=== PATIENT | male | born 2000 | race Caucasian/White ===

== ENCOUNTER 2018-04-30 21:44 | Emergency (ER) | payer SELFPAY ==
[~2018-04-30] VITALS: Ht 177.8 cm; Wt 104.3 kg
[2018-04-30 21:57] VITALS: BP_SYST 125
--- NOTE | 2018-04-30 22:01 | NUR ---
Patient triaged and placed in waiting room. VSS and patient appears in no acute distress at this time. Accompanied by FATHER, awaiting available bed, and MD notified of need for MSE.
--- NOTE | 2018-04-30 22:44 | NUR ---
Patient to ER bed 8 to gown for evaluation. Side rails up. Report given to TRINY Hairston
--- NOTE | 2018-04-30 22:46 | NUR ---
Pt brought by self, A&Ox4, pt presents to ER with bodyaches and fever since today, skin pink and warm, respirations even and unlabored, denies chest pain, denies N/V/D.
--- NOTE | 2018-04-30 22:46 | NUR ---
Dr Montalvo at bedside examining patient
--- NOTE | 2018-04-30 22:57 | NUR ---
Pt on stable condition, report given to Ciera AGOSTO.
[2018-04-30 23:20] VITALS: BP_SYST 120
--- NOTE | 2018-04-30 23:20 | NUR ---
Note rashid in EDM - 04/30/18 at 2349 by [email or web address] Patient given written and verbal discharge instructions and verbalizes understanding. ER discussed with patient the results and treatment provided. Patient in stable condition. ID arm band removed. IV catheter removed intact and dressing applied, no active bleeding. Rx of given. Patient educated on pain management and to follow up with PMD. Pain Scale . Opportunity for questions provided and answered. Medication side effect fact sheet provided.
--- NOTE | 2018-04-30 23:20 | NUR ---
Patient given written and verbal discharge instructions and verbalizes understanding. ER MD discussed with patient the results and treatment provided. Patient in stable condition. ID arm band removed. Rx of amoxicillin and Motrin given. Patient educated on pain management and to follow up with PMD. Pain Scale 0/10 . Opportunity for questions provided and answered.
== END 2018-04-30 23:20 | disposition home or self-care (01) ==
LOC: SED 21:44
DX: J02.9 Acute pharyngitis, unspecified (principal); R03.0 Elevated blood-pressure reading, without diagnosis of hypertension
CPT/HCPCS: 99283